=== PATIENT | male | born 1970 | race Caucasian/White ===

== ENCOUNTER 2017-08-21 21:39 | Emergency (ER) | payer OTHER ==
[~2017-08-21] VITALS: Ht 177.8 cm; Wt 86.2 kg
[2017-08-21 21:42] VITALS: BP 150/96; PULSE 77; TEMP 36.7; O2SAT 95; Ht 177.8 cm; Wt 86.2 kg
[2017-08-21] MEDS ORDERED: LIDO/EPINEPHRINE/SOD BICARB 20 ML VIAL INFIL ONE (22:00)
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
== END 2017-08-21 23:01 | disposition home or self-care (01) ==
LOC: C.EDB 21:40 → C.EDD 23:01
DX: S51.812A Laceration without foreign body of left forearm, initial encounter (principal); R07.89 Other chest pain; V18.0XXA Pedal cycle driver injured in noncollision transport accident in nontraffic accident, initial encounter; Y92.89 Other specified places as the place of occurrence of the external cause